=== PATIENT | female | born 1955 | race Two or more races ===

== ENCOUNTER → 2017-10-15 | Outpatient (CLI) | payer MEDICAID ==
[~2017-10-15] MED LIST: ADENOSINE 57 MG in GIVE UN-DILUTED 0 ML IV ONE; ADENOSINE 90 MG/30 ML INJ IV ONE
== END | disposition home or self-care (01) ==
LOC: Rad HDHVI 14:15
PROVIDERS: ATTEND Internal Medicine Cardiovascular Disease
DX: I31.3 Pericardial effusion (noninflammatory) (principal); J44.9 Chronic obstructive pulmonary disease, unspecified; K63.5 Polyp of colon; K74.60 Unspecified cirrhosis of liver; R94.31 Abnormal electrocardiogram [ECG] [EKG]; R94.8 Abnormal results of function studies of other organs and systems; Z87.19 Personal history of other diseases of the digestive system; Z87.891 Personal history of nicotine dependence
CPT/HCPCS: 78452; 93005; 93306; 96374; 96375; A9500; J0153